=== PATIENT | male | born 1955 | race Caucasian/White ===

== ENCOUNTER 2022-08-05 09:46 | Day surgery (SDC) | payer MEDICARE ==
[~2022-08-05] VITALS: Ht 190.5 cm; Wt 109.8 kg
[2022-08-05] MEDS ORDERED: METOPROLOL SUCC25 MG PO (11:26)
[2022-08-05] MEDS ORDERED: Ramipril5 MG PO (11:27)
[2022-08-05] MEDS ORDERED: Simvastatin10 MG PO (11:27)
[2022-08-05 15:31] VITALS: BP 139/91
--- NOTE | 2022-08-05 15:37 | NUR ---
08/05/22 1537 Deirdre Rainey FENTANYL 25MCG IV X1 GIVEN FOR 8/10 PAIN IN L FOOT AT 1428. PT REPORTS IMPROVEMENT IN PAIN TO A 4-5/10. PATIENT GIVEN ELLIOTT CRACKERS AND ROXI DOONE COOKIES TO EAT. DRINKING WATER WITHOUT ANY PROBLEMS. WILL GIVE ORAL NORCO 5-325MG PER DR REHMAN'S DISCHARGE ORDERS AFTER PATIENT HAS EATEN SOME.
== END 2022-08-05 16:07 | disposition home or self-care (01) ==
LOC: ORSCSDS 09:46
PROVIDERS: Podiatrist Foot & Ankle Surgery
PROC: 0QSR04Z Reposition Left Toe Phalanx with Internal Fixation Device, Open Approach (ICD-10-PCS; principal; 2022-08-05 12:30)
PROC: 0SGJ04Z Fusion of Left Tarsal Joint with Internal Fixation Device, Open Approach (ICD-10-PCS; principal; 2022-08-05 12:30)
DX: M21.612 Bunion of left foot (principal); I10 Essential (primary) hypertension; Z79.899 Other long term (current) drug therapy
CPT/HCPCS: A9270; C1713; J0171; J0690; J2250; J2704; J2795; J3010; J7120